=== PATIENT | female | born 1960 | race Caucasian/White ===

== ENCOUNTER 2023-02-17 13:37 | Outpatient (CLI) | payer BC | END 2023-02-17 13:38 | disposition home or self-care (01) | LOC: BICMAMMO 13:37 | PROVIDERS: ATTEND Student in an Organized Health Care Education/Training Program | DX: N64.89 Other specified disorders of breast (principal) | CPT/HCPCS: G0279 ==

== ENCOUNTER 2024-02-25 13:14 | Outpatient (CLI) | payer BC | END 2024-02-25 13:15 | disposition home or self-care (01) | LOC: ULT 13:14 | PROVIDERS: ATTEND Nurse Practitioner | DX: N28.1 Cyst of kidney, acquired (principal) | CPT/HCPCS: 76770 ==